=== PATIENT | male | born 1960 | race Caucasian/White ===

== ENCOUNTER 2020-11-08 13:21 | Emergency (ER) | payer OTHER ==
[2020-11-08] MEDS ORDERED: HYDROcodone/Acetaminophen 5/325 mg Tablet ONE (14:59)
[2020-11-08] MEDS ORDERED: Boostrix 0.5 ML (Tdap) VIAL ONE (14:59)
[2020-11-08] MEDS ORDERED: Lidocaine 1% w/Epinephrine 1:100K 20 ML VIAL ONE (15:33)
[2020-11-08] MEDS ORDERED: Bacitracin 1 PK ONE (17:35)
== END 2020-11-08 17:58 | disposition home or self-care (01) ==
LOC: ERS 13:21
DX: S61.213A Laceration without foreign body of left middle finger without damage to nail, initial encounter (principal); S60.812A Abrasion of left wrist, initial encounter; Z23 Encounter for immunization; E78.5 Hyperlipidemia, unspecified; E78.00 Pure hypercholesterolemia, unspecified; I10 Essential (primary) hypertension; I25.2 Old myocardial infarction; G47.30 Sleep apnea, unspecified; W31.2XXA Contact with powered woodworking and forming machines, initial encounter
CPT/HCPCS: 12002; 90471; 90715